=== PATIENT | female | born 1995 | race Caucasian/White ===

== ENCOUNTER → 2019-12-12 | Outpatient (CLI) | payer OTHER | LOC: LAB FS 09:32 | PROVIDERS: ATTEND Family Medicine | DX: Z34.80 Encounter for supervision of other normal pregnancy, unspecified trimester (principal) | CPT/HCPCS: 36415; 82105; 82677; 84702; 86336 ==

== ENCOUNTER → 2019-12-12 | Outpatient (CLI) | payer OTHER | LOC: LABNPT 14:44 | PROVIDERS: ATTEND Family Medicine | DX: Z34.80 Encounter for supervision of other normal pregnancy, unspecified trimester (principal); Z3A.00 Weeks of gestation of pregnancy not specified | CPT/HCPCS: 87491; 87591 ==

== ENCOUNTER → 2020-02-06 | Outpatient (CLI) | payer OTHER ==
[2020-02-06 11:30] LABS: WHITE BLOOD COUNT 12.2 10^3/uL (4.3-11.0)
[2020-02-06 11:31] LABS: BASOPHILS % (AUTO) 0 % (0-10); EOSINOPHILS # (AUTO) 0.1 10^3/uL (0.0-0.3); EOSINOPHILS % (AUTO) 1 % (0-10); HEMATOCRIT 34 % (35-52); HEMOGLOBIN 11.9 G/DL (11.5-16.0); LYMPHOCYTES # (AUTO) 2.2 X 10^3 (1.0-4.0); LYMPHOCYTES % (AUTO) 18 % (12-44); MEAN CORPUSCULAR HEMOGLOBIN 32 PG (25-34); MEAN CORPUSCULAR HGB CONC 35 G/DL (32-36); MEAN CORPUSCULAR VOLUME 91 FL (80-99); MEAN PLATELET VOLUME 10.8 FL (7.4-10.4); MONOCYTES # (AUTO) 0.7 X 10^3 (0.0-1.0); MONOCYTES % (AUTO) 6 % (0-12); NEUTROPHILS # (AUTO) 9.2 X 10^3 (1.8-7.8); NEUTROPHILS % (AUTO) 75 % (42-75); PLATELET COUNT 258 10^3/uL (130-400); RED CELL DISTRIBUTION WIDTH 12.6 % (10.0-14.5)
== END ==
LOC: LAB FS 10:41
PROVIDERS: ATTEND Family Medicine
DX: Z34.80 Encounter for supervision of other normal pregnancy, unspecified trimester (principal); Z3A.00 Weeks of gestation of pregnancy not specified
CPT/HCPCS: 36415; 82950; 84443; 85025; 86780

== ENCOUNTER → 2020-02-08 | Outpatient (CLI) | payer OTHER | LOC: LAB FS 07:08 | PROVIDERS: ATTEND Family Medicine | DX: R73.09 Other abnormal glucose (principal) | CPT/HCPCS: 36415; 82951; 82952; 82962 ==

== ENCOUNTER → 2020-04-16 | Outpatient (CLI) | payer OTHER | LOC: LABNPT 15:23 | PROVIDERS: ATTEND Family Medicine | DX: O09.90 Supervision of high risk pregnancy, unspecified, unspecified trimester (principal); Z3A.00 Weeks of gestation of pregnancy not specified | CPT/HCPCS: 87081 ==

== ENCOUNTER 2020-04-28 05:53 | Inpatient (IN) | payer MEDICAID, OTHER ==
[~2020-04-28] VITALS: Ht 149.9 cm; Wt 84.2 kg
[2020-04-28] VITALS (52 sets, daily range): BP systolic 98–147; BP diastolic 52–83
--- OUTSIDE RECORDS SUMMARY | 2020-04-28 06:05 | XMS REPORT | Continuity of Care Document ---
Author Organization Unknown Address Unknown Phone Unavailable Allergies There is no data. Medications There is no data. Problems Date Dx Coded Attending Type Code Diagnosis Diagnosed By 12/20/2019 BELA AIKEN MD Ot Z34.80 ENCOUNTER FOR SUPRVSN OF NORMAL PREGNANC 12/20/2019 BELA AIKEN MD Ot Z34.80 ENCOUNTER FOR SUPRVSN OF NORMAL PREGNANC 12/20/2019 BELA AIKEN MD Ot Z3A.00 WEEKS OF GESTATION OF NOT SPEC 01/04/2020 BELA AIKEN MD Ot Z34.80 ENCOUNTER FOR SUPRVSN OF NORMAL PREGNANC 01/04/2020 BELA AIKEN MD Ot Z3A.00 WEEKS OF GESTATION OF NOT SPEC 01/25/2020 BELA AIKEN MD Ot Z34.80 ENCOUNTER FOR SUPRVSN OF NORMAL PREGNANC 02/11/2020 BELA AIKEN MD Ot R73.09 OTHER ABNORMAL GLUCOSE 02/12/2020 BELA AIKEN MD Ot R73.09 OTHER ABNORMAL GLUCOSE 02/12/2020 BELA AIKEN MD Ot R73.09 OTHER ABNORMAL GLUCOSE 02/18/2020 BELA AIKEN MD Ot R73.09 OTHER ABNORMAL GLUCOSE 04/16/2020 BELA AIKEN MD Ot Z34.80 ENCOUNTER FOR SUPRVSN OF NORMAL PREGNANC 04/16/2020 BELA AIKEN MD Ot Z34.80 ENCOUNTER FOR SUPRVSN OF NORMAL PREGNANC 04/16/2020 BELA AIKEN MD Ot Z3A.00 WEEKS OF GESTATION OF NOT SPEC 04/16/2020 BELA AIKEN MD Ot Z34.80 ENCOUNTER FOR SUPRVSN OF NORMAL PREGNANC 04/16/2020 BELA AIKEN MD Ot Z3A.00 WEEKS OF GESTATION OF NOT SPEC 04/16/2020 BELA AIKEN MD Ot R73.09 OTHER ABNORMAL GLUCOSE Procedures There is no data. Results Test Result Range Chlamydia trachomatis DNA detection by p robe and signal amplification method - 12/12/19 00:00 Chlamydia trachomatis DNA detection by p robe and target amplification method Not Detected Not Detected Neisseria gonorrhoeae DNA detection by p robe and signal amplification method - 12/12/19 00:00 Gonorrhea amp DNA-urine Not Detected No t Detected [id number] - 12/12/19 09:53 [id number] 2.49 % NRG Race or ethnicity [OASIS] Caucasia NRG HCG MAT SCR 24.7 [iU]/mL NRG Insulin dependent diabetes mellitus [Presence] No NRG Mother's body weight --at delivery 166 % NRG Number of fetuses 1 % NRG Delivery date US composite estimate LMP NRG History of Neural tube defect Qualitative no NRG Down's syndrome [Minimum Data Set] No NRG INHIB A MAT SCR 128 pg/mL NRG Inhibin A [Multiple of the median] in Serum or Plasma 0.70 NRG NTD RISK UNAVAILABLE NRG Age NRG DS RISK <1:5000 <1:270 Trisomy 18 risk [Likelihood] in Fetus < <1:100 Gestational age in weeks 14.4 NRG Choriogonadotropin [Multiple of the median] in Serum o r Plasma 0.51 NRG Estriol (E3).unconjugated [Mass/volume] in Serum or Pl asma 1.24 % NRG Estriol (E3) [Multiple of the median] in Serum or Plas ma 2.54 NRG Capillary blood glucose measurement by g lucometer (mass/volume) - 02/08/20 07:16 Capillary blood glucose measurement by glucometer (mas s/volume) 103 mg/dL 70-110 Serum or plasma glucose measurement 3 ho urs post challenge (mass/volume) - 02/08/20 07:16 Serum or plasma glucose measurement 3 ho urs post challenge (mass/volume) NRG Streptococcus agalactiae detection by or ganism specific culture - 04/16/20 10:55 QUANTITY OF GROWTH . NRG Streptococcus agalactiae detection by organism specifi c culture [id number] NRG Encounters ACCT No. Visit Date/Time Discharge Status Pt. Type Provider Facility Loc./Unit Complaint [id number] 04/16/2020 15:23:00 020 23:59:59 CLS Outpatient ATTILA CARTWRIGHTBELA [facility] LABNPT O09.90 [facility] [id number] 02/08/2020 07:08:00 23:59:59 CLS Outpatient BELA AIKEN MD [facility] LAB FS GLUCOSE TOLERANCE TEST 3 HOUR [id number] 02/06/2020 10:41:00 23:59:59 CLS Outpatient BELA AIKEN MD [facility] LAB FS CBC GLUCOSE TOLERANCE TEST 1 HOUR RPR TSH [id number] 12/12/2019 14:44:00 23:59:59 CLS Outpatient BELA AIKEN MD [facility] LABNPT Z34.80 [id number] 12/12/2019 09:32:00 23:59:59 CLS Outpatient BELA AIKEN MD [facility] LAB FS Z34.80 [id number] 04/28/2020 06:00:00 P EN Preadmit BELA AIKEN MD
--- NOTE | 2020-04-28 06:10 | NUR ---
ERIC RAZO presented to unit via ABULATORY from ED, accompanied by SO , with c/o INDUCTION. ERIC RAZO weighed, gowned, voided, and to bed. EFHM and TOCO applied, VS taken. ERIC RAZO oriented to bed controls, call light, TV, heat, and A/C controls. ABOVE AND FURTHER COMPELTED PER FER DARLING.
[2020-04-28] MEDS ORDERED: MINERAL OIL CONCENTRATE 99.9% 15 ML UDC TOP PRN (07:15)
[2020-04-28 07:18] LABS: BASOPHILS % (AUTO) 0 % (0-10); EOSINOPHILS # (AUTO) 0.1 10^3/uL (0.0-0.3); EOSINOPHILS % (AUTO) 1 % (0-10); HEMATOCRIT 37 % (35-52); LYMPHOCYTES # (AUTO) 3.5 X 10^3 (1.0-4.0); LYMPHOCYTES % (AUTO) 31 % (12-44); MEAN CORPUSCULAR HEMOGLOBIN 31 PG (25-34); MEAN CORPUSCULAR HGB CONC 35 G/DL (32-36); MEAN CORPUSCULAR VOLUME 89 FL (80-99); MEAN PLATELET VOLUME 12.4 FL (7.4-10.4); MONOCYTES # (AUTO) 0.7 X 10^3 (0.0-1.0); MONOCYTES % (AUTO) 7 % (0-12); NEUTROPHILS # (AUTO) 6.9 X 10^3 (1.8-7.8); NEUTROPHILS % (AUTO) 62 % (42-75); PLATELET COUNT 196 10^3/uL (130-400); RED CELL DISTRIBUTION WIDTH 12.5 % (10.0-14.5); WHITE BLOOD COUNT 11.1 10^3/uL (4.3-11.0)
[2020-04-28] MEDS ORDERED: OXYTOCIN PRE-MIX DRIP 500 ML IV ONE (07:54)
[2020-04-28] MEDS ORDERED: OXYTOCIN PRE-MIX DRIP 500 ML IV SCH (08:16)
[2020-04-28] MEDS: D5 LR IV SOLUTION 1,000 ML IV SCH ×2 (08:27→16:03)
[2020-04-28] MEDS ORDERED: fentaNYL 2 mcg/ml BUPIVA 0.125 100 ML ONE (13:40)
--- NOTE | 2020-04-28 13:58 | History & Physical-OB ---
OB - Chief Complaint & HPI Date/Time Date of Admission: Date of Admission: Apr 28, 2020 at 05:53 Date seen by a Provider: Apr 28, 2020 Time Seen by a Provider: 12:03 Chief Complaint/History OB-Reason for Admission/Chief: Induction of Labor Hx : 2 Hx Para: 1 Expected Date of Delivery: May 12, 2020 Gestational Age in Weeks: 38 Gestational Age in Days: 0 Indication for induction: other (gestational diabetes requiring insulin) Admission Nurse Assessment Rev: Yes Allergies and Home Medications Allergies Coded Allergies: No Known Drug Allergies (Unverified , 04/28/20) Patient Home Medication List Home Medication List Reviewed: Yes OB - History Hx of Present Ultrasounds: Normal mid trimester US Obstetrical Complications: Gestational Diabetes Medical Complications: None Delivery History Adverse Rxn to Tranfusion: No Patient Past Medical History previously healthy Social History/Family History Recent Infectious Disease Expo: No Alcohol Use: Denies Use Recreational Drug Use: No Immunizations Hepatitis A: Yes Hepatitis B: Yes OB - Admission Exam Physical Exam Vitals: Vital Signs 04/28/20 04/28/20 07:49 09:50 Temp 36.9 Pulse 89 Resp 20 B/P (MAP) 122/65 (84) Pulse Ox 98 O2 Delivery Room Air HEENT: NCAT Heart: Rhythm Normal Lungs: Clear Abdomen: Gravid Extremities: Normal Reflexes: Normal Cervical Dilatation: 3cm Effacement: 50% Station: -3 Membranes: Intact Heart Rate: 130's Accelerations: Accelerations Present Decelerations: No Decelerations Short Term Variability: Present Supervisor Audit Clerks Variability: Average (6-25) Contractions on Admission: < 5 Minutes Apart Labs Laboratory Tests Test 04/28/20 06:54 Range/Units White Blood Count 11.1 H 4.3-11.0 10^3/uL Red Blood Count 4.18 L 4.35-5.85 10^6/uL Hemoglobin 13.0 11.5-16.0 G/DL Hematocrit 37 35-52 % Mean Corpuscular Volume 89 80-99 FL Mean Corpuscular Hemoglobin 31 25-34 PG Mean Corpuscular Hemoglobin Concent 35 32-36 G/DL Red Cell Distribution Width 12.5 10.0-14.5 % Platelet Count 196 130-400 10^3/uL Mean Platelet Volume 12.4 H 7.4-10.4 FL Neutrophils (%) (Auto) 62 42-75 % Lymphocytes (%) (Auto) 31 12-44 % Monocytes (%) (Auto) 7 0-12 % Eosinophils (%) (Auto) 1 0-10 % Basophils (%) (Auto) 0 0-10 % Neutrophils # (Auto) 6.9 1.8-7.8 X 10^3 Lymphocytes # (Auto) 3.5 1.0-4.0 X 10^3 Monocytes # (Auto) 0.7 0.0-1.0 X 10^3 Eosinophils # (Auto) 0.1 0.0-0.3 10^3/uL Basophils # (Auto) 0.0 0.0-0.1 10^3/uL Glucose Level 74 70-105 MG/DL OB - Assessment/Plan/Diagnosis Assessment Assessment: induction of labor Admission Dx Induciton of labor at 38 0/7 wga for GDM, insulin dependence Admission Status: Inpatient Order (span 2 midnights) Reason for Inpatient Admission: Induction of labor. Plan Plan: Expectant Management Induction Method: per Pitocin Protocol Other Plan AROM and epidural when appropriate. BELA AIKEN MD Apr 28, 2020 13:58
[2020-04-28] MEDS ORDERED: CATHETER FLUSH 10 ML SYR IV SCH ×2 (14:00→22:00)
[2020-04-28] MEDS ORDERED: LIDOCAINE PF 2% 5 ML (XYLOCAINE) VIAL ONE (14:15)
[2020-04-28] MEDS ORDERED: BUPIVACAINE 0.25% 30 ML (SENSORCAINE) VIAL ONE (14:15)
[2020-04-28] MEDS ORDERED: fentaNYL INJECTION 100 MCG/2 ML AMP ONE (14:16)
[2020-04-28] MEDS ORDERED: LACTATED RINGERS 1,000 ML IV ONE ×2 (15:16)
[2020-04-28] MEDS ORDERED: NALOXONE 0.4 MG/ML 1 ML (NARCAN) VIAL IV PRN (15:30)
[2020-04-28] MEDS ORDERED: ONDANSETRON 4 MG/2 ML (SDV) Z0FRAN IV PRN (15:30)
[2020-04-28] MEDS ORDERED: EPIDURAL (fentaNYL 2 MCG/ML BUPIVA 0.125%)100 ML BAG EPI PRN (15:30)
[2020-04-28] MEDS ORDERED: LIDOCAINE/EPI 2% 1:200,00 (XYLOCAINE) 10 ML VIAL ONE (17:22)
--- NOTE | 2020-04-28 18:12 | NUR ---
spontaneous vaginal delivery of intact placenta by dr carrion. sent to lab for processing. 1813 dr assessed perineum for tears and lacerations. no repair needed. 1815 out of stirrups vpad to perineum, underwear on. ffu/2 light flow no clots expressed.
--- NOTE | 2020-04-28 18:20 | NUR ---
epidural stopped. catheter out tip intact.
--- NOTE | 2020-04-28 18:30 | NUR ---
ffu/2 moderate flow. no clots expressed. in arms.
--- NOTE | 2020-04-28 18:50 | NUR ---
infant at breast. rooting assisting to help infant latch, s/o remains present. will continue to monitor.
--- NOTE | 2020-04-28 20:15 | NUR ---
transferred to room 309.
[2020-04-28] MEDS ORDERED: metFORMIN 500 MG (GLUCOPHAGE) TAB PO ONE (20:30)
[2020-04-28] MEDS ORDERED: BENZOCAINE/MENTHOL (DERMOPLAST) 60 ML CAN TP PRN (20:30)
[2020-04-28] MEDS ORDERED: WITCH HAZEL(TUCKS) 40 EA JAR TOP PRN (20:30)
[2020-04-28] MEDS ORDERED: DOCUSATE SODIUM 100 MG (COLACE) CAP PO SCH (21:00)
[2020-04-28] MEDS: IBUPROFEN 600 MG (MOTRIN) TAB PO SCH (21:40)
[2020-04-29 00:15] VITALS: BP 122/59
[2020-04-29] MEDS: IBUPROFEN 600 MG (MOTRIN) TAB PO SCH ×3 (03:53→16:47)
[2020-04-29 05:00] VITALS: BP 107/65
[2020-04-29 05:41] LABS: BASOPHILS % (AUTO) 0 % (0-10); EOSINOPHILS # (AUTO) 0.1 10^3/uL (0.0-0.3); EOSINOPHILS % (AUTO) 1 % (0-10); HEMATOCRIT 35 % (35-52); HEMOGLOBIN 12.1 G/DL (11.5-16.0); LYMPHOCYTES # (AUTO) 3.2 X 10^3 (1.0-4.0); LYMPHOCYTES % (AUTO) 26 % (12-44); MEAN CORPUSCULAR HEMOGLOBIN 31 PG (25-34); MEAN CORPUSCULAR HGB CONC 35 G/DL (32-36); MEAN CORPUSCULAR VOLUME 90 FL (80-99); MEAN PLATELET VOLUME 12.1 FL (7.4-10.4); MONOCYTES # (AUTO) 0.7 X 10^3 (0.0-1.0); MONOCYTES % (AUTO) 6 % (0-12); NEUTROPHILS # (AUTO) 8.5 X 10^3 (1.8-7.8); NEUTROPHILS % (AUTO) 68 % (42-75); PLATELET COUNT 168 10^3/uL (130-400); RED CELL DISTRIBUTION WIDTH 12.6 % (10.0-14.5); WHITE BLOOD COUNT 12.4 10^3/uL (4.3-11.0)
--- NOTE | 2020-04-29 06:42 | Anesthesia-Regional Post-Op ---
Regional Patient Condition Mental Status: Alert, Oriented x3 Circulation: Same as Pre-Op Headache: Absent Sensation: Full Recovery Motor Block: Absent Post Op Complications Complications None Follow Up Care/Instructions Patient Instructions None needed. Anesthesia/Patient Condition Patient is doing well, no complaints, stable vital signs, no apparent adverse anesthesia problems. No complications reported per nursing. ANGELINA ROBERT CRNA Apr 29, 2020 06:42
[2020-04-29] MEDS ORDERED: PRENATAL VITAMIN 1 EA TAB PO SCH (07:00)
--- NOTE | 2020-04-29 07:35 | NUR ---
Report given to Razia DARLING
[2020-04-29 08:41] VITALS: BP 118/78
[2020-04-29] MEDS: metFORMIN 500 MG (GLUCOPHAGE) TAB PO SCH ×2 (08:49→16:47)
[2020-04-29] MEDS: ACETAMINOPHEN 500 MG TAB (TYLENOL) PO SCH ×3 (08:49→19:39)
--- NOTE | 2020-04-29 12:01 | OB Labor & Delivery Record ---
Vag Delivery Note Vag Delivery Note Date of Delivery: 04/28/20 Preoperative Diagnosis: Maya Curiel is a (25 /Para 2 / 1, Gestational Age (wks)38with [0 days] Postoperative Diagnosis: Same Surgeon: BELA AIKEN Cloud Developer: [none] Anesthesia: [epidural] Delivery Type: [] Findings: [none] Viable [female] infant, apgars [36/9], weight [7 pounds 15 ounces] Lacerations: Intact placenta with 3 vessel cord. Loose nuchal cord times one. Estimated Blood Loss: [200] ml Complications: None Condition: Stable Description of Procedure: The patient is a 25 year old female who presented [for induction]. She was admitted and informed consent was obtained. Her labor course was remarkable for [nothing] She progressed to complete dilatation and began to push. She was then set up for delivery. The infant's head was delivered atraumatically in the [OA] position. The shoulders and remainder of the 's body were then delivered after 60 seconds with Mandie maneuver alone. right shoulder anterior. Upon delivery, the head was held below the level of the perineum and the mouth and nares were bulb suctioned. The cord was doubly clamped and cut after 60 seconds by father of baby and was taken to warmer. An intact placenta with 3-vessel cord delivered via Violeta and there was found to be minimal bleeding.~ Vigorous fundal massage was performed and the fundus was found to be firm. IV oxytocin was given. Examination of the vagina and perineum revealed no lacerations. Following the repair, sponge, instrument and needle counts were correct. Mom and baby were both in stable condition in the labor suite. Vitals - Labs Vital Signs - I&O Vital Signs Date Time Temp Pulse Resp B/P (MAP) Pulse Ox O2 Delivery O2 Flow Rate FiO2 04/29/20 08:41 36.5 93 18 118/78 (91) 97 04/29/20 05:00 37.1 80 18 107/65 (79) 04/29/20 00:15 37.1 94 18 122/59 (80) 97 04/28/20 20:00 94 18 116/63 (80) 04/28/20 19:45 94 116/63 (80) 04/28/20 19:30 100 116/73 (87) 04/28/20 19:15 95 18 111/72 (85) 20 19:00 103 18 115/73 (87) 20 18:30 37.5 88 20 138/67 (90) 98 Room Air 04/28/20 18:20 37.6 101 20 122/60 (80) 98 Room Air 04/28/20 18:00 37.7 85 20 131/81 (98) 98 Room Air 04/28/20 17:45 126 20 119/83 (95) 98 Room Air 04/28/20 17:30 37.4 82 20 132/71 (91) 98 Room Air 04/28/20 17:15 91 20 119/56 (77) 98 Room Air 04/28/20 17:00 83 20 101/58 (72) 98 Room Air 04/28/20 16:45 77 20 100/52 (68) 99 Room Air 04/28/20 16:30 78 20 99/58 (72) 100 Room Air 04/28/20 16:15 81 20 111/55 (73) 100 Room Air 04/28/20 16:00 37.2 64 20 106/57 (73) 99 Room Air 04/28/20 15:45 64 20 108/58 (75) 98 Room Air 04/28/20 15:30 74 20 116/57 (76) 98 Room Air 04/28/20 15:15 77 20 98/55 (69) 98 Room Air 04/28/20 15:00 75 20 112/59 (76) 98 Room Air 04/28/20 14:47 78 20 113/58 (76) 98 Room Air 04/28/20 14:45 77 20 119/66 (83) 98 Room Air 04/28/20 14:40 37.0 77 20 115/60 (78) 98 Room Air 04/28/20 14:35 80 20 130/62 (84) 98 Room Air 04/28/20 14:30 85 20 147/83 (104) 99 Room Air 04/28/20 14:25 90 20 142/80 (100) 99 Room Air 04/28/20 14:10 88 20 122/82 (95) Room Air 04/28/20 13:52 83 20 133/60 (84) Room Air 720 13:35 80 20 131/69 (89) Room Air 7/20 13:20 83 20 119/62 (81) Room Air 04/28/20 13:05 81 20 122/65 (84) Room Air 04/28/20 12:50 86 20 134/64 (87) Room Air 04/28/20 12:45 37.3 75 20 133/64 (87) Room Air 04/28/20 12:20 77 20 118/71 (87) Room Air 04/28/20 12:05 82 20 118/59 (78) Room Air I & O 04/29/20 07:00 Intake Total 1400 ml Balance 1400 ml Labs Laboratory Tests 04/29/20 05:19: White Blood Count 12.4H, Red Blood Count 3.86L, Hemoglobin 12.1, Hematocrit 35, Mean Corpuscular Volume 90, Mean Corpuscular Hemoglobin 31, Mean Corpuscular Hemoglobin Concent 35, Red Cell Distribution Width 12.6, Platelet Count 168, Mean Platelet Volume 12.1H, Neutrophils (%) (Auto) 68, Lymphocytes (%) (Auto) 26, Monocytes (%) (Auto) 6, Eosinophils (%) (Auto) 1, Basophils (%) (Auto) 0, Neutrophils # (Auto) 8.5H, Lymphocytes # (Auto) 3.2, Monocytes # (Auto) 0.7, Eosinophils # (Auto) 0.1, Basophils # (Auto) 0.0 04/29/20 08:58: Glucometer 116H BELA AIKEN MD Apr 29, 2020 12:01
[2020-04-29] MEDS ORDERED: IBUP-844 PO (12:04)
--- NOTE | 2020-04-29 12:05 | Discharge Summary ---
Discharge Inst-[facility] Reconcile Patient Problems Problems Reviewed?: Yes Depart Medications New, Converted or Re-Newed RX: Transmitted to Pharmacy Follow Up/Instructions Goal/Follow Up: [address] Aiken Activity Activity: Activity as Tolerated Driving Instructions: You May Drive NO SMOKING: NO SMOKING Nothing Inside Vagina: No Douching, No [place], No Tampons Diet Discharge Diet: No Restrictions Symptoms to Report to : Fever Over 101 Degrees F, Vaginal Bleeding Increase For Any Problems or Questions: Contact Your Physician BELA AIKEN MD Apr 29, 2020 12:05
[2020-04-29 14:45] VITALS: BP 122/60
--- NOTE | 2020-04-29 15:00 | NUR ---
towels for shower to pt room.
--- NOTE | 2020-04-29 20:00 | NUR ---
D/C instructions given & explained per Akila Ho RN, pt. verbalized understanding & signed.
[2020-04-29 20:20] VITALS: BP 120/68
--- NOTE | 2020-04-29 20:20 | NUR ---
Pt. left [facility] via W/C escorted by Franki, nursing supervisor reclamation & SO, SO carrying in carseat. Pt. to home via private vehicle per SO after pt. & infant properly secured in vehicle.
== END 2020-04-29 20:20 | disposition home or self-care (01) | DRG 807 ==
LOC: LDRP 05:53
PROVIDERS: ADMIT Family Medicine; ATTEND Family Medicine
PROC: 3E033VJ Introduction of Other Hormone into Peripheral Vein, Percutaneous Approach (ICD-10-PCS; 2020-04-28)
PROC: 10E0XZZ Delivery of Products of Conception, External Approach (ICD-10-PCS; principal; 2020-04-29)
DX: O69.81X0 Labor and delivery complicated by cord around neck, without compression, not applicable or unspecified (principal); Z37.0 Single live birth; O24.424 Gestational diabetes mellitus in childbirth, insulin controlled; Z3A.38 38 weeks gestation of pregnancy
CPT/HCPCS: 36415; 82947; 82962; 85025; 86850; 86900; 86901

== ENCOUNTER → 2020-05-07 | Outpatient (CLI) | payer MEDICAID ==
[~2020-05-07] MED LIST: IBUP-844 PO
== END ==
LOC: LAB FS 14:40
PROVIDERS: ATTEND Family Medicine
DX: N39.0 Urinary tract infection, site not specified (principal)
CPT/HCPCS: 87077; 87088

== ENCOUNTER → 2020-06-17 | Outpatient (CLI) | payer MEDICAID | LOC: LAB FS 14:07 | PROVIDERS: ATTEND Family Medicine | DX: Z13.1 Encounter for screening for diabetes mellitus (principal) | CPT/HCPCS: 36415; 83036 ==

== ENCOUNTER → 2021-04-28 | Outpatient (CLI) | payer MEDICAID | LOC: LAB FS 16:19 | PROVIDERS: ATTEND Family Medicine | DX: O20.0 Threatened abortion (principal) | CPT/HCPCS: 36415; 84702 ==

== ENCOUNTER → 2021-04-30 | Outpatient (CLI) | payer MEDICAID | LOC: LAB FS 12:46 | PROVIDERS: ATTEND Family Medicine | DX: O20.0 Threatened abortion (principal); Z3A.00 Weeks of gestation of pregnancy not specified | CPT/HCPCS: 36415; 84702 ==

== ENCOUNTER → 2021-05-27 | Outpatient (CLI) | payer MEDICAID ==
[2021-05-27 11:09] LABS: HEMATOCRIT 38 % (35-52); HEMOGLOBIN 13.1 g/dL (11.5-16.0); MEAN CORPUSCULAR HEMOGLOBIN 31 pg (25-34); MEAN CORPUSCULAR HGB CONC 34 g/dL (32-36); MEAN CORPUSCULAR VOLUME 90 fL (80-99); PLATELET COUNT 181 10^3/uL (130-400); WHITE BLOOD COUNT 7.9 10^3/uL (4.3-11.0)
[2021-05-27 11:10] LABS: MEAN PLATELET VOLUME 11.8 fL (9.0-12.2)
== END ==
LOC: LAB FS 10:22
PROVIDERS: ATTEND Family Medicine
DX: Z34.91 Encounter for supervision of normal pregnancy, unspecified, first trimester (principal); Z3A.00 Weeks of gestation of pregnancy not specified; Z86.32 Personal history of gestational diabetes
CPT/HCPCS: 36415; 83036; 85027; 86703; 86762; 86780; 86850; 86900; 86901; 87088; 87340

== ENCOUNTER → 2021-07-10 | Outpatient (CLI) | payer MEDICAID | LOC: LAB 07:14 | PROVIDERS: ATTEND Family Medicine | DX: Z34.91 Encounter for supervision of normal pregnancy, unspecified, first trimester (principal); Z3A.00 Weeks of gestation of pregnancy not specified | CPT/HCPCS: 36415; 82951; 82952 ==

== ENCOUNTER → 2021-09-25 | Outpatient (CLI) | payer MEDICAID ==
[2021-09-25 10:31] LABS: HEMATOCRIT 37 % (35-52); HEMOGLOBIN 12.6 g/dL (11.5-16.0); MEAN CORPUSCULAR HEMOGLOBIN 32 pg (25-34); MEAN CORPUSCULAR HGB CONC 35 g/dL (32-36); MEAN CORPUSCULAR VOLUME 92 fL (80-99); MEAN PLATELET VOLUME 10.8 fL (9.0-12.2); PLATELET COUNT 247 10^3/uL (130-400); WHITE BLOOD COUNT 10.2 10^3/uL (4.3-11.0)
[2021-09-25 10:32] LABS: BASOPHILS % (AUTO) 0 % (0-10); EOSINOPHILS % (AUTO) 1 % (0-10); LYMPHOCYTES % (AUTO) 24 % (12-44); MONOCYTES % (AUTO) 4 % (0-12); NEUTROPHILS % (AUTO) 69 % (42-75)
[2021-09-25 10:33] LABS: EOSINOPHILS # (AUTO) 0.1 10^3/uL (0.0-0.3); LYMPHOCYTES # (AUTO) 2.5 X 10^3 (1.0-4.0); MONOCYTES # (AUTO) 0.5 X 10^3 (0.0-1.0); NEUTROPHILS # (AUTO) 7.1 X 10^3 (1.8-7.8)
== END ==
LOC: LAB FS 08:11
PROVIDERS: ATTEND Family Medicine
DX: Z34.92 Encounter for supervision of normal pregnancy, unspecified, second trimester (principal); Z3A.00 Weeks of gestation of pregnancy not specified
CPT/HCPCS: 36415; 82951; 82952; 85025; 86592

== ENCOUNTER 2021-10-29 16:38 | Outpatient (CLI) | payer MEDICAID ==
[~2021-10-29] VITALS: Ht 150 cm; Wt 86.9 kg
[2021-10-29 17:00] VITALS: BP 129/60
[2021-10-29 17:07] LABS: BILIRUBIN,URINE NEGATIVE (NEGATIVE); CLARITY,URINE CLEAR; COLOR,URINE YELLOW; GLUCOSE, URINE (UA) NEGATIVE (NEGATIVE); KETONES,URINE NEGATIVE (NEGATIVE); LEUKOCYTE ESTERASE ,URINE NEGATIVE (NEGATIVE); NITRITE,URINE NEGATIVE (NEGATIVE); PH,URINE 6.5 (5-9); PROTEIN,URINE NEGATIVE (NEGATIVE)
[2021-10-29 17:24] LABS: BACTERIA,URINE LARGE /HPF; WBC,URINE 0-2 /HPF
[2021-10-29] MEDS ORDERED: PREN1TAB79 PO (17:30)
[2021-10-29] MEDS ORDERED: PANT40TA52 PO (17:31)
[2021-10-29 17:33] VITALS: BP 113/54
[2021-10-29 18:05] VITALS: BP 113/54
--- NOTE | 2021-10-30 08:07 | Physician Query-Final Dx ---
KELVIN10/30/21 0807: Clinic Account Progress/Dx Physician Query: Please give diagnosis Please include # weeks gestation Date of Service Oct 29, 2021 at 16:38 PEDRO CHOWDHURY DO 11/02/21 0851: Clinic Account Progress/Dx DIAGNOSIS: Diagnosis 29 week gestation lower extremity edema KELVIN,OctOct 30, 2021 08:07 PEDRO CHOWDHURY DO Nov 02, 2021 08:51
== END 2021-10-29 18:05 | disposition home or self-care (01) ==
LOC: LDRP 16:38 → WSo 16:38
PROVIDERS: ATTEND Family Medicine
DX: Z34.90 Encounter for supervision of normal pregnancy, unspecified, unspecified trimester (principal); Z3A.00 Weeks of gestation of pregnancy not specified
CPT/HCPCS: 81000; 87088; G0463; 99212

== ENCOUNTER 2021-12-01 11:59 | Outpatient (CLI) | payer MEDICAID ==
[~2021-12-01] VITALS: Ht 150 cm; Wt 87.5 kg
[~2021-12-01 11:59] MED LIST changes: +PANT40TA52 PO; +PREN1TAB79 PO
[2021-12-01 12:23] VITALS: BP 117/61
[2021-12-01 12:35] LABS: BILIRUBIN,URINE NEGATIVE (NEGATIVE); CLARITY,URINE CLEAR; COLOR,URINE YELLOW; GLUCOSE, URINE (UA) NEGATIVE (NEGATIVE); KETONES,URINE NEGATIVE (NEGATIVE); LEUKOCYTE ESTERASE ,URINE NEGATIVE (NEGATIVE); NITRITE,URINE NEGATIVE (NEGATIVE); PH,URINE 7.5 (5-9); PROTEIN,URINE NEGATIVE (NEGATIVE)
[2021-12-01 12:54] LABS: BACTERIA,URINE TRACE /HPF; SQUAMOUS EPITHELIAL CELL,UR 0-2 /HPF
[2021-12-01 13:00] VITALS: BP 117/61
[2021-12-01 13:22] VITALS: BP 117/61
[2021-12-01 13:51] VITALS: BP 117/61
[2021-12-01 14:05] VITALS: BP 117/61
--- NOTE | 2021-12-02 11:03 | Physician Query-Final Dx ---
KELVIN,12/02/21 1103: Clinic Account Progress/Dx Physician Query: Please give diagnosis Please include # weeks gestation Date of Service Dec 01, 2021 at 11:59 DEBBIE BRYSON DO 12/02/21 1519: Clinic Account Progress/Dx DIAGNOSIS: Diagnosis 33week IUP with decreased movement KELVIN,OctDec 02, 2021 11:03 DEBBIE BRYSON DO Dec 02, 2021 15:19
== END 2021-12-01 14:05 | disposition home or self-care (01) ==
LOC: LDRP 11:59 → WSo 11:59
PROVIDERS: ATTEND Obstetrics & Gynecology
DX: O36.8130 Decreased fetal movements, third trimester, not applicable or unspecified (principal); Z3A.33 33 weeks gestation of pregnancy
CPT/HCPCS: 81000; 87088

== ENCOUNTER → 2021-12-10 | Outpatient (CLI) | payer MEDICAID | LOC: LABNPT 14:55 | PROVIDERS: ATTEND Family Medicine | DX: Z34.83 Encounter for supervision of other normal pregnancy, third trimester (principal) | CPT/HCPCS: 87081 ==

== ENCOUNTER 2022-01-07 06:10 | Inpatient (IN) | payer OTHER, MEDICAID ==
[2022-01-07] VITALS (32 sets, daily range): BP systolic 99–164; BP diastolic 54–100
[~2022-01-07] VITALS: Ht 149.9 cm; Wt 89.1 kg
[2022-01-07] MEDS ORDERED: LIDOCAINE/EPI 2% 1:200,00 (XYLOCAINE) 20 ML VIAL INJ PRN (06:30)
[2022-01-07] MEDS ORDERED: OXYTOCIN PRE-MIX DRIP 500 ML IV SCH (06:30)
[2022-01-07 06:49] LABS: BILIRUBIN,URINE NEGATIVE (NEGATIVE); CLARITY,URINE CLOUDY; COLOR,URINE ORANGE; GLUCOSE, URINE (UA) NEGATIVE (NEGATIVE); KETONES,URINE NEGATIVE (NEGATIVE); LEUKOCYTE ESTERASE ,URINE 1+ (NEGATIVE); NITRITE,URINE NEGATIVE (NEGATIVE); PH,URINE 6.5 (5-9); PROTEIN,URINE NEGATIVE (NEGATIVE)
[2022-01-07 07:00] LABS: BACTERIA,URINE MODERATE /HPF; RBC,URINE RARE /HPF; WBC,URINE 25-50 /HPF
[2022-01-07 07:55] LABS: BASOPHILS % (AUTO) 0 % (0-10); EOSINOPHILS # (AUTO) 0.1 10^3/uL (0.0-0.3); EOSINOPHILS % (AUTO) 1 % (0-10); HEMATOCRIT 40 % (35-52); HEMOGLOBIN 13.9 g/dL (11.5-16.0); LYMPHOCYTES # (AUTO) 3.2 10^3/uL (1.0-4.0); LYMPHOCYTES % (AUTO) 24 % (12-44); MEAN CORPUSCULAR HEMOGLOBIN 32 pg (25-34); MEAN CORPUSCULAR HGB CONC 35 g/dL (32-36); MEAN CORPUSCULAR VOLUME 90 fL (80-99); MEAN PLATELET VOLUME 12.1 fL (9.0-12.2); MONOCYTES # (AUTO) 0.6 10^3/uL (0.0-1.0); MONOCYTES % (AUTO) 5 % (0-12); NEUTROPHILS # (AUTO) 9.2 10^3/uL (1.8-7.8); NEUTROPHILS % (AUTO) 70 % (42-75); PLATELET COUNT 223 10^3/uL (130-400); WHITE BLOOD COUNT 13.3 10^3/uL (4.3-11.0)
[2022-01-07] MEDS: D5 LR IV SOLUTION 1,000 ML IV SCH ×3 (08:00→22:11)
--- NOTE | 2022-01-07 08:29 | History & Physical-OB ---
OB - Chief Complaint & HPI Date/Time Date of Admission: Date of Admission: Jan 07, 2022 at 06:10 Date seen by a Provider: Jan 07, 2022 Time Seen by a Provider: 08:15 Chief Complaint/History OB-Reason for Admission/Chief: Induction of Labor Hx : 4 Hx Para: 2 Expected Date of Delivery: Jan 09, 2022 Gestational Age in Weeks: 39 Gestational Age in Days: 5 Admission Nurse Assessment Rev: Yes History of Labs O pos Antibody neg RI RPR NR HBsAg NR HIV NR GC neg GBS neg Allergies and Home Medications Allergies Coded Allergies: No Known Drug Allergies (Unverified , 04/28/20) Patient Home Medication List Home Medication List Reviewed: Yes Pantoprazole Sodium (Pantoprazole Sodium) 40 Mg Tablet.dr, 40 MG PO DAILY, (Reported) Entered as Reported by: GAVIN ORTIZ on 10/29/211730 Last Action: Reviewed Vit W-Ca,Fe,FA(<1 mg) ( Vitamins) 1 Each Tablet, 1 EACH PO DAILY, (Reported) Entered as Reported by: GAVIN ORTIZ on 10/29/211729 Last Action: Reviewed OB - History Hx of Present Care: Yes Obstetrical Complications: None Medical Complications: None Delivery History Adverse Rxn to Tranfusion: No Patient Past Medical History previously healthy Social History/Family History 2nd Hand Smoke Exposure: No Immunizations Hepatitis A: Yes Hepatitis B: Yes OB - Admission Exam Physical Exam Vitals: Vital Signs 01/07/22 07:00 Temp 36.6 Pulse 88 Resp 18 Pulse Ox 98 O2 Delivery Room Air HEENT: NCAT Heart: Rhythm Normal Lungs: Clear Abdomen: Gravid Extremities: Normal Reflexes: Normal Cervical Dilatation: 3cm Effacement: 75% Station: -1 Membranes: Intact Heart Rate: 130's Accelerations: Accelerations Present Decelerations: No Decelerations Short Term Variability: Present Creative Project Manager Variability: Average (6-25) Contractions on Admission: >10 Minutes Apart Intensity: Mild Negrete Scoring Tool (Modified) Dilation (cm): 3-4cm (2) Effacement (%): 51-79% (2) Descent/Station: -1,0 (2) Cervix Consistency: Soft (2) Cervix Position: Anterior (2) Negrete Score: 10 Labs Laboratory Tests Test 01/07/22 06:30 01/07/22 07:50 Range/Units Urine Color ORANGE Urine Clarity CLOUDY Urine pH 6.5 5-9 Urine Specific [place] 1.025 H 1.016-1.022 Urine Protein NEGATIVE NEGATIVE Urine Glucose (UA) NEGATIVE NEGATIVE Urine Ketones NEGATIVE NEGATIVE Urine Nitrite NEGATIVE NEGATIVE Urine Bilirubin NEGATIVE NEGATIVE Urine Urobilinogen 0.2 < = 1.0 MG/DL Urine Leukocyte Esterase 1+ H NEGATIVE Urine RBC (Auto) NEGATIVE NEGATIVE Urine RBC RARE /HPF Urine WBC 25-50 H /HPF Urine Squamous Epithelial Cells 5-10 /HPF Urine Crystals NONE /LPF Urine Bacteria MODERATE H /HPF Urine Casts NONE /LPF Urine Mucus SMALL H /LPF Urine Culture Indicated YES White Blood Count 13.3 H 4.3-11.0 10^3/uL Red Blood Count 4.41 3.80-5.11 10^6/uL Hemoglobin 13.9 11.5-16.0 g/dL Hematocrit 40 35-52 % Mean Corpuscular Volume 90 80-99 fL Mean Corpuscular Hemoglobin 32 25-34 pg Mean Corpuscular Hemoglobin Concent 35 32-36 g/dL Red Cell Distribution Width 12.3 10.0-14.5 % Platelet Count 223 130-400 10^3/uL Mean Platelet Volume 12.1 9.0-12.2 fL Immature Granulocyte % (Auto) 1 % Neutrophils (%) (Auto) 70 42-75 % Lymphocytes (%) (Auto) 24 12-44 % Monocytes (%) (Auto) 5 0-12 % Eosinophils (%) (Auto) 1 0-10 % Basophils (%) (Auto) 0 0-10 % Neutrophils # (Auto) 9.2 H 1.8-7.8 10^3/uL Lymphocytes # (Auto) 3.2 1.0-4.0 10^3/uL Monocytes # (Auto) 0.6 0.0-1.0 10^3/uL Eosinophils # (Auto) 0.1 0.0-0.3 10^3/uL Basophils # (Auto) 0.0 0.0-0.1 10^3/uL Immature Granulocyte # (Auto) 0.1 0.0-0.1 10^3/uL OB - Assessment/Plan/Diagnosis Assessment Assessment: induction of labor Admission Dx 26 yo @ 39.5 Elective IOL GBS neg Admission Status: Inpatient Order (span 2 midnights) Reason for Inpatient Admission: IOL at 39 weeks Plan Plan: Induction DEBBIE BRYSON DO Jan 07, 2022 08:29
[2022-01-07] MEDS ORDERED: fentaNYL 2 mcg/ml BUPIVA 0.125 0 ML ONE (11:24)
[2022-01-07] MEDS ORDERED: BUPIVACAINE 0.25% 10 ML (SENSORCAINE) VIAL ONE ×2 (11:55→13:07)
[2022-01-07] MEDS ORDERED: fentaNYL INJ 100 MCG/2 ML AMP ONE (11:55)
[2022-01-07] MEDS: fentaNYL 2 mcg/ml BUPIVA 0.125 100 ML IV SCH ×2 (12:20→22:10)
[2022-01-07] MEDS ORDERED: SUCCINYLCHOLINE INJ 100 MG/5 ML SYR/VIAL ONE (12:44)
[2022-01-07] MEDS ORDERED: ONDANSETRON 4 MG/2 ML (SDV) Z0FRAN ONE (12:44)
[2022-01-07] MEDS ORDERED: proPOfol 200 MG/20 ML (DIPRIVAN) VIAL IV ONE (12:44)
[2022-01-07] MEDS ORDERED: METOCLOPRAMIDE INJ 10 MG/2 ML (REGLAN) ONE (12:45)
[2022-01-07] MEDS ORDERED: ceFAZolin INJECTION 2,000 MG ONE (12:48)
[2022-01-07] MEDS ORDERED: PHENYLEPHRINE 100 MCG/ML 10 ML (ANESTHESIA) SYR ONE (12:56)
[2022-01-07] MEDS ORDERED: KETOROLAC 30 MG/ML VIAL ONE (13:10)
--- NOTE | 2022-01-07 13:20 | Diagnostic Imaging Report ---
INDICATION: Postoperative evaluation, . COMPARISON: None available. TECHNIQUE: Single radiograph of the lower abdomen and pelvis dated January 07, 2022. FINDINGS: Soft tissue gas is seen overlying the pelvis related to recent surgical changes. No suspicious radiopaque foreign body within the [id number]. No evidence of bowel obstruction. Foreshortened right femoral neck with enlarged right femoral head. No acute osseous abnormality. IMPRESSION: Recent postsurgical changes without suspicious radiopaque foreign body within the [id number]. 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 Dictated by: Dictated on workstation # [id number]
[2022-01-07] MEDS ORDERED: HYDROmorphone 2 MG/ML VIAL (DILAUDID) IV ONE (13:30)
[2022-01-07] MEDS ORDERED: ONDANSETRON 4 MG/2 ML (SDV) Z0FRAN IVP PRN ×2 (13:30→13:45)
[2022-01-07] MEDS ORDERED: NALOXONE 0.4 MG/ML 1 ML (NARCAN) VIAL IV PRN ×2 (13:30→13:45)
[2022-01-07] MEDS ORDERED: LACTATED RINGERS 1,000 ML IV ONE ×2 (13:30→18:39)
[2022-01-07] MEDS ORDERED: CATHETER FLUSH 10 ML SYR IV PRN (13:30)
[2022-01-07] MEDS: OXYTOCIN PRE-MIX DRIP 500 ML IV SCH ×2 (13:40→22:09)
[2022-01-07] MEDS ORDERED: MEASLES,MUMPS,RUBELLA 1 EA INJ SC SCH (13:45)
[2022-01-07] MEDS ORDERED: TETANUS,DIPTH,PERTUSS P/F (BOOSTRIX) 0.5 ML VIAL IM SCH (13:45)
[2022-01-07] MEDS ORDERED: ceFAZolin 2 GM IV Premixed 50 ML IV ONE (13:45)
[2022-01-07] MEDS: HYDROcodone/APAP 5 MG/325 MG (LORTAB) TAB PO PRN ×2 (17:18→19:43)
[2022-01-07] MEDS: KETOROLAC 30 MG/ML VIAL IV SCH ×2 (18:55→23:54)
[2022-01-07] MEDS: CATHETER FLUSH 10 ML SYR IV SCH ×4 (19:00→22:00)
[2022-01-07] MEDS: DOCUSATE SODIUM 100 MG (COLACE) CAP PO SCH (19:43)
--- NOTE | 2022-01-07 20:18 | OPERATIVE REPORT ---
DATE OF SERVICE: PREOPERATIVE DIAGNOSES: 1. A 26-year-old G4, P2 at 39 weeks and 5 days gestation. 2. Cord prolapse. POSTOPERATIVE DIAGNOSES: 1. A 26-year-old G4, P2 at 39 weeks and 5 days gestation. 2. Cord prolapse. PROCEDURE: Emergency primary low transverse section. SURGEON: Norberto Bryson DO ANESTHESIA: General endotracheal. ESTIMATED BLOOD LOSS: 600 mL. URINE OUTPUT: 500 mL clear at the end of the procedure. FLUIDS: 1000 mL lactated Ringer's solution. FINDINGS: A live male weighing 8 pounds 3 ounces, Apgars of 8 and 9. Grossly normal appearing uterus, bilateral fallopian tubes and ovaries. SPECIMEN SENT: Placenta. INDICATIONS FOR PROCEDURE: This 26-year-old female is the patient who is brought in for induction of labor this morning. On initial examination, she was 3 to 4 cm dilated, artificial rupture of membranes was performed, clear fluid was noted. The head was well engaged. The patient was allowed to labor naturally without any augmentation at first. There were a few prolonged decelerations this morning that occurred, but otherwise the heart tracing was within normal limits. The patient became acutely more uncomfortable at approximately 11:00 this morning and requested an epidural, which was placed . heart tracing throughout epidural placement was within normal limits. Had the patient placed back in the supine position and examined her at that point due to some variable decelerations that occurred during the epidural placement and a cord was palpable in front of the head and this was also accompanied by a prolonged deceleration to the 70s. Due to concerns for wellbeing, I discussed with the patient proceeding emergently with . Verbal consent was obtained and the patient was taken to the operating room. Once in the operating room, she was emergently prepped and draped and general anesthesia was administered. Once intubation is noted and acknowledged by anesthesia, Pfannenstiel skin incision was made with a knife and carried down to underlying fascia using the knife. The fascial incision extended laterally using blunt traction. The rectus muscles were down the midline using blunt traction, which allows me to enter the peritoneum, which I entered bluntly and extended using blunt traction. Geoff ring retractor was placed in the peritoneal incision, which offers excellent lateral sidewall retraction. I identified the lower uterine segment, which was found to be thinned out. I made a low transverse incision to the vesicouterine peritoneum and bluntly dissected off the lower uterine segment, creating a bladder flap. I then proceeded with myotomy until I visualized the infant at which point I extended the uterine incision using blunt traction. With gentle fundal pressure, the infant's head was elevated up the incision where the nares and oropharynx were bulb suctioned. Anterior and posterior shoulders were delivered. The infant was brought to the operative field with cord doubly clamped and cut and infant was handed off to Dr. Chahal who was present for delivery. Cord blood was collected. Cord gases were collected; however, an inadequate sample was obtained, which I suspect was venous. Intact placenta with three-vessel cord was delivered spontaneously thereafter. IV Pitocin was initiated to facilitate uterine contraction. Uterine fundus confirmed by manual massage. Uterus was exteriorized and cleared of all endometrial clots and debris. I then proceeded with closing the uterine incision using 0 Vicryl suture in running locked fashion. A second layer of imbricating 0 Monocryl was placed. Excellent hemostasis was noted after doing this. I then placed the uterus back in the pelvis and copiously irrigated the pelvis using normal saline. Once again, there was no active bleeding noted from any of my dissection planes. I placed Interceed antiadhesive over my low transverse incision. I removed the Geoff ring retractor and then proceeded with closing the peritoneum using 3-0 Vicryl suture in a running fashion. The rectus muscle reapproximated using 3-0 Vicryl suture in interrupted fashion. The fascia was reapproximated using 0 Vicryl suture in running fashion. Subcutaneous tissue was reapproximated using 3-0 plain interrupted subcutaneous stitch. The skin was reapproximated using 4-0 Monocryl in a running subcuticular. Dermabond was applied to incision and sterile dressing with adhesive white tape. The patient tolerated the procedure well and sent to recovery area in stable condition. Lap and sponge counts were correct at the end of procedure. Instrument counts correct as well. Two grams of Ancef were given preoperatively for infection prophylaxis. Job ID: [id number] DocumentID: [id number] Dictated Date: 01/07/2022 14:08:33 Leather Stamper Date: 01/07/2022 20:17:38 Dictated By: NORBERTO BRYSON DO
[2022-01-08] VITALS: BP 118/60
[2022-01-08] MEDS: HYDROcodone/APAP 5 MG/325 MG (LORTAB) TAB PO PRN ×4 (04:06→23:15)
[2022-01-08 04:10] VITALS: BP 113/56
[2022-01-08 06:02] LABS: BASOPHILS % (AUTO) 0 % (0-10); EOSINOPHILS # (AUTO) 0.1 10^3/uL (0.0-0.3); EOSINOPHILS % (AUTO) 1 % (0-10); HEMATOCRIT 36 % (35-52); HEMOGLOBIN 12.3 g/dL (11.5-16.0); LYMPHOCYTES # (AUTO) 3.3 10^3/uL (1.0-4.0); LYMPHOCYTES % (AUTO) 23 % (12-44); MEAN CORPUSCULAR HEMOGLOBIN 32 pg (25-34); MEAN CORPUSCULAR HGB CONC 34 g/dL (32-36); MEAN CORPUSCULAR VOLUME 92 fL (80-99); MEAN PLATELET VOLUME 12.9 fL (9.0-12.2); MONOCYTES # (AUTO) 0.8 10^3/uL (0.0-1.0); MONOCYTES % (AUTO) 6 % (0-12); NEUTROPHILS % (AUTO) 70 % (42-75); PLATELET COUNT 184 10^3/uL (130-400); WHITE BLOOD COUNT 14.3 10^3/uL (4.3-11.0)
[2022-01-08] MEDS: KETOROLAC 30 MG/ML VIAL IV SCH ×2 (06:24→21:41)
[2022-01-08 08:15] VITALS: BP 113/69
[2022-01-08] MEDS: DOCUSATE SODIUM 100 MG (COLACE) CAP PO SCH ×2 (08:25→21:59)
--- NOTE | 2022-01-08 10:13 | Postpartum Progress Note ---
Note Note Day # 1 Subjective: Patient is without complaints. Ambulating, voiding. Tolerating a regular diet without nausea or vomiting. Normal lochia. Pain is well controlled with oral pain medications. Objective: Physical Exam: General - Alert and oriented, no apparent distress Abdomen - Soft, appropriately tender to palpation, non-distended, fundus firm at umbilicus Extremities - no edema, negative Danika's bilaterally Incision- c/d/i Assessment: POD 1 PLTCS Plan: Routine care. Encourage breast feeding. Encourage ambulation. Ferrous sulfate supplementation. Plan for discharge tomorrow Vitals - Labs Vital Signs - I&O Vital Signs Date Time Temp Pulse Resp B/P (MAP) Pulse Ox O2 Delivery O2 Flow Rate FiO2 01/08/22 08:15 36.5 82 16 113/69 (84) 98 Room Air 01/08/22 04:10 37.0 81 18 113/56 (75) 98 Room Air 01/08/22 00:00 36.7 84 18 118/60 (79) 98 Room Air 01/07/22 20:18 98 Room Air 01/07/22 20:00 35.8 88 18 120/67 (84) 98 Room Air 01/07/22 16:13 37.1 90 128/58 (81) 97 Room Air 01/07/22 14:36 Room Air 01/07/22 14:03 Room Air 01/07/22 14:00 36.5 20 102/67 (79) 98 Room Air 01/07/22 13:50 22 99/65 (76) 94 Room Air 01/07/22 13:45 Room Air 01/07/22 13:40 20 126/65 (85) 99 Room Air 01/07/22 13:30 20 123/78 (93) 100 OxyMask 2 01/07/22 13:30 OxyMask 2 01/07/22 13:20 18 126/70 (88) 99 OxyMask 4 01/07/22 13:17 OxyMask 6 01/07/22 13:17 36.5 16 122/100 (107) 97 OxyMask 6 01/07/22 12:30 114 18 128/59 (82) 97 Room Air 01/07/22 12:26 110 145/62 (89) 01/07/22 12:24 115 18 135/55 (81) 97 Room Air 01/07/22 12:21 119 18 135/61 (85) 98 Room Air 01/07/22 12:18 132/61 (84) 01/07/22 12:15 122 18 133/60 (84) 95 Room Air 01/07/22 12:12 102 18 148/71 (96) 96 Room Air 01/07/22 12:10 112 18 164/82 (109) Room Air 01/07/22 12:07 105 18 118/59 (78) 98 Room Air 01/07/22 12:02 111 18 163/90 (114) 98 Room Air 01/07/22 11:42 95 18 125/59 (81) Non Rebreather 15.00 01/07/22 11:25 94 18 120/54 (76) Room Air 01/07/22 11:10 98 18 121/57 (78) Room Air 01/07/22 10:42 78 18 125/79 (94) Non Rebreather 15.00 01/07/22 10:39 80 18 140/68 (92) Non Rebreather 15.00 I & O 01/08/22 07:00 Intake Total 5650 ml Output Total 1350 ml Balance 4300 ml Labs Laboratory Tests 01/08/22 05:18: White Blood Count 14.3H, Red Blood Count 3.89, Hemoglobin 12.3, Hematocrit 36, Mean Corpuscular Volume 92, Mean Corpuscular Hemoglobin 32, Mean Corpuscular Hemoglobin Concent 34, Red Cell Distribution Width 12.8, Platelet Count 184, Mean Platelet Volume 12.9H, Immature Granulocyte % (Auto) 1, Neutrophils (%) (Auto) 70, Lymphocytes (%) (Auto) 23, Monocytes (%) (Auto) 6, Eosinophils (%) (Auto) 1, Basophils (%) (Auto) 0, Neutrophils # (Auto) 10.0H, Lymphocytes # (Auto) 3.3, Monocytes # (Auto) 0.8, Eosinophils # (Auto) 0.1, Basophils # (Auto) 0.0, Immature Granulocyte # (Auto) 0.1, Neutrophils % (Manual) DEBBIE BRYSON DO Jan 08, 2022 10:13
[2022-01-08] MEDS ORDERED: IBUP-844 PO (10:14)
[2022-01-08] MEDS ORDERED: ACHD5005 PO (10:14)
[2022-01-08] MEDS ORDERED: DOCU100C37 PO (10:14)
--- NOTE | 2022-01-08 10:16 | Discharge Inst-Women's Service ---
Discharge Inst-Women's Serv Depart Medication/Instructions New, Converted or Re-Newed RX: Transmitted to Pharmacy Final Diagnosis POD 2 PLTCS Problems Reviewed?: Yes Consults/Follow Up Additional Follow Up: Yes Orders/Referrals Dr. Cho in 7-[address] Ramirez in 6 weeks Activity Activity: Activity as Tolerated Driving Instructions: No Driving for 1 Week NO SMOKING: NO SMOKING Nothing Inside Vagina: No Douching, No [place], No Tampons Diet Discharge Diet: No Restrictions Symptoms to Report to : Bleeding Excessive, Pain Increased, Fever Over 101 Degrees F, Vaginal Bleeding Increase, Questions/Concerns For Any Problems or Questions: Contact Your Physician Skin/Wound Care Infection Signs and Symptoms: Increased Redness, Foul Odor of Wound, Increased Drainage, Skin Itchy or Has a Rash, Increased Swelling, Temperature Above 101 F Stitches/Maris/Dermabond: Dermabond, Care of Stitches Bathing Instructions: DEBBIE Batres DO Jan 08, 2022 10:16
[2022-01-08 12:00] VITALS: BP 123/68
[2022-01-08] MEDS ORDERED: IBUPROFEN 600 MG (MOTRIN) TAB PO ONE (12:04)
--- NOTE | 2022-01-08 14:23 | Anesthesia-General Post-Op ---
General Patient Condition Mental Status/LOC: Same as Preop Cardiovascular: Satisfactory Nausea/Vomiting: Absent Respiratory: Satisfactory Pain: Controlled Complications: Absent Post Op Complications Complications None Follow Up Care/Instructions Patient Instructions None needed. Anesthesia/Patient Condition Patient Condition Patient is doing well, no complaints, stable vital signs, no apparent adverse anesthesia problems. She had epidural placed but shortly after an emergent C/S was called so a GA was necessary for the safety of the baby. She is ambulating with full recovery of sensation and motor blockade. No headaches/nausea noted. SKYLER AGUILAR DO Jan 08, 2022 14:23
[2022-01-08 16:20] VITALS: BP 116/59
[2022-01-08] MEDS: IBUPROFEN 600 MG (MOTRIN) TAB PO SCH (21:00)
[2022-01-08 21:59] VITALS: BP 123/55
[2022-01-09 02:40] VITALS: BP 115/56
[2022-01-09] MEDS: IBUPROFEN 600 MG (MOTRIN) TAB PO SCH ×3 (02:40→13:45)
[2022-01-09] MEDS: HYDROcodone/APAP 5 MG/325 MG (LORTAB) TAB PO PRN ×2 (05:08→13:46)
--- NOTE | 2022-01-09 09:03 | Postpartum Progress Note ---
Note Note Day # 2 Subjective: Patient is without complaints. Ambulating, voiding. Tolerating a regular diet without nausea or vomiting. Normal lochia. Pain is well controlled with oral pain medications. Objective: Physical Exam: General - Alert and oriented, no apparent distress Abdomen - Soft, appropriately tender to palpation, non-distended, fundus firm at umbilicus Extremities - no edema, negative Danika's bilaterally Incision c/d/i Assessment: POD 2 RLTCS Plan: Routine care. Encourage breast feeding. Encourage ambulation. Ferrous sulfate supplementation. Plan for discharge today Vitals - Labs Vital Signs - I&O Vital Signs Date Time Temp Pulse Resp B/P (MAP) Pulse Ox O2 Delivery O2 Flow Rate FiO2 01/09/22 02:40 36.5 88 18 115/56 (75) 98 Room Air 01/08/22 21:59 36.6 89 18 123/55 (77) 98 Room Air 01/08/22 16:20 36.6 98 18 116/59 (78) 98 Room Air 01/08/22 12:00 36.6 90 16 123/68 (86) 98 Room Air I & O 01/09/22 07:00 Intake Total 600 ml Balance 600 ml Labs Microbiology 01/07/22 Urine Culture - Final, Complete NO GROWTH DEBBIE BRYSON DO Jan 09, 2022 09:03
[2022-01-09 09:06] VITALS: BP 128/61
[2022-01-09] MEDS: DOCUSATE SODIUM 100 MG (COLACE) CAP PO SCH (09:09)
== END 2022-01-09 15:18 | disposition home or self-care (01) | DRG 788 ==
LOC: LDRP 06:10 → WS 14:10
PROVIDERS: ADMIT Obstetrics & Gynecology; ATTEND Obstetrics & Gynecology
PROC: 3E033VJ Introduction of Other Hormone into Peripheral Vein, Percutaneous Approach (ICD-10-PCS; 2022-01-07)
PROC: 8E0ZXY6 Isolation (ICD-10-PCS; 2022-01-07)
PROC: 10D00Z1 Extraction of Products of Conception, Low, Open Approach (ICD-10-PCS; principal; 2022-01-07 12:36)
DX: O69.0XX0 Labor and delivery complicated by prolapse of cord, not applicable or unspecified (principal); Z3A.39 39 weeks gestation of pregnancy; Z37.0 Single live birth; O76 Abnormality in fetal heart rate and rhythm complicating labor and delivery; Z23 Encounter for immunization
CPT/HCPCS: 36415; 74018; 81000; 85007; 85025; 85027; 86850; 86900; 86901; 87088; 90707; 94664

== ENCOUNTER → 2023-04-13 | Outpatient (CLI) | payer OTHER, MEDICAID ==
[~2023-04-13] MED LIST changes: +ACHD5005 PO; +DOCU100C37 PO
--- NOTE | 2023-04-13 13:18 | Diagnostic Imaging Report ---
EXAMINATION: Pelvis, single view. Right hip radiographs, 2 additional views. COMPARISON: None. HISTORY: 28-year-old female, right hip pain. FINDINGS: There is shortening of the right femoral neck and broadening of the right femoral head. There is incompletely coverage of the lateral aspect of the femoral head by the acetabulum on the right. There is no joint space loss of either hip, osteophyte formation, or subchondral cystic change. The morphology of the left proximal femur is unremarkable. There is no identified acute fracture. IMPRESSION: 1. Abnormally short right femoral neck and broadening of the right femoral head with incomplete coverage of the lateral aspect of the femoral head on the right by the acetabulum. This may relate to sequela of developmental dysplasia of the hip or other remote prior insult. 2. No evidence of arthritis of either hip. Dictated by: Dictated on workstation # [id number]
== END ==
LOC: RAD FS 10:39
PROVIDERS: ATTEND Family Medicine
DX: M25.551 Pain in right hip (principal)
CPT/HCPCS: 73502